=== PATIENT | male | born 1935 | race Caucasian/White ===

== ENCOUNTER 2021-08-14 05:52 | Inpatient (IN) | payer MEDICARE, BC, SELFPAY ==
[2021-08-14] VITALS (21 sets, daily range): BP systolic 126–141; BP diastolic 66–78; PULSE 78–95; RESP 14–27; TEMP 35.9–36.5; O2SAT 91–100; BMI 32.1
--- NOTE | ~2021-08-14 | CT_ITS ---
EXAMINATION: CT abdomen pelvis wo con DATE: 08/14/2021 17:14 INDICATION: Scrotal swelling TECHNIQUE: Computed tomography (CT) of the abdomen and pelvis was performed without intravenous contr ast. The dose-length product was 1372.39 mGy-cm. Automated exposure control and iterative reconstruct ion technique were employed. COMPARISON: None. FINDINGS: Bibasilar dependent airspace disease. Heart size is normal. No significant pleural or peric ardial effusion. Status post cholecystectomy. The liver, spleen, pancreas, adrenal glands are unremar kable. There are bilateral renal cysts. No hydronephrosis. Nonobstructive bowel gas pattern. Prostate gland is mildly enlarged. Bladder wall is mildly thickened with subtle perivesical fatty infiltratio n. There are is fluid in the inguinal canals bilaterally, consistent with hydroceles. There is a fat- containing umbilical hernia. Moderate osteoarthritis of the hips. Moderate lower thoracic and lumbar spondylosis. IMPRESSION: 1. Mild bladder wall thickening with subtle perivesical fatty infiltration, suspicious for cystitis. Correlate clinically. 2: Partially visualized bilateral hydroceles. 3: Bibasilar airspace disease, right greater than left. Considerations include atelectasis and pneum onia. Reviewed, dictated and finalized at location A. IMPRESSION: 1. Mild bladder wall thickening with subtle perivesical fatty infiltration, zack picious for cystitis. Correlate clinically. 2: Partially visualized bilateral hydroceles. 3: Bibasilar airspace disease, right greater than left. Considerations include atelectasis and pneumonia.
--- NOTE | ~2021-08-14 | XR_ITS ---
EXAMINATION: XR chest 1V portable INDICATION: Chest pain TECHNIQUE: Portable AP chest at 0409 hours COMPARISON: None available FINDINGS: There are patchy bilateral airspace opacities throughout all lung zones. No pleural effusio n or pneumothorax is identified. Cardiomegaly is noted. A cardiac monitoring device projects over the left lower cardiac border. IMPRESSION: 1. Patchy bilateral airspace opacities which could reflect atelectasis versus pneumonia versus pulmon elsy edema. 2. Cardiomegaly. Reviewed, dictated and finalized at location A. IMPRESSION: 1. Patchy bilateral airspace opacities which could reflect atelectasis versus p neumonia versus pulmonary edema. 2. Cardiomegaly.
--- NOTE | ~2021-08-14 | XR_ITS ---
EXAMINATION: XR chest 1V portable INDICATION: Hypoxia TECHNIQUE: Portable AP chest at 0527 hours COMPARISON: 08/14/2021 FINDINGS: Cardiomegaly is noted. Patchy bilateral opacities persist but have improved. No pleural eff usion or pneumothorax is identified. A cardiac monitoring device projects over the left lower cardiac border.. IMPRESSION: 1. Cardiomegaly. 2. Improved bilateral airspace opacities, consistent with atelectasis versus pneumonia. Reviewed, dictated and finalized at location A. IMPRESSION: 1. Cardiomegaly. 2. Improved bilateral airspace opacities, consistent with atelectasis versus pn eumonia.
--- NOTE | ~2021-08-14 | US_ITS ---
EXAMINATION: US scrotum doppler EXAM DATE: 08/14/2021 13:57 INDICATION: Scrotal swelling. TECHNIQUE: Multiple grayscale and Doppler images of the testicles and scrotum were obtained bilateral ly. There is no prior study for comparison. FINDINGS: There are large, severe bilateral hydroceles. The testicles along the wall of the scrotum appear sarahi gated in shape with the right measuring 7.2 x 2.1 x 2.5 cm, the left measuring 7.9 x 3.1 x 4.6 cm. Left testicular parenchyma has regions of heterogeneous echogenicity, some of which demonstrate shado wing consistent with calcification. This is nonspecific but does raise possibility of testicular mass including both benign and malignant histologies such as seminoma. IMPRESSION: 1. Left testicular regions heterogeneous parenchyma, could indicate testicular mass such as seminoma ; a CT abdomen pelvis, and consult would be appropriate. 2. Severe bilateral hydroceles. Reviewed, dictated and finalized at location B. IMPRESSION: 1. Left testicular regions heterogeneous parenchyma, could indicate testicular mass such as seminoma; a CT abdomen pelvis, and consult would be appropriat e. 2. Severe bilateral hydroceles.
--- NOTE | 2021-08-14 05:59 | ECG_ITS ---
Measurements Intervals [place] Rate: 81 P: [place]: 0 QRS: 245 QRSD: 157 T: 47 QT: 437 QTc: 510 Interpretive Statements ELECTRONIC VENTRICULAR PACEMAKER BASELINE ARTIFACT- I, II, III, AVR, AVL, AVF, V1-V6 NO FURTHER INTERPRETATION IS POSSIBLE ATYPICAL ECG Electronically Signed On 08-14-2021 6:59:25 CDT by Bo Baires D.O.
[2021-08-14 06:15] LABS: Basophils Absolute Auto 0.1 K/mm3 (0.0-0.1); Eosinophils Absolute Auto 0.4 K/mm3 (0-0.3); Eosinophils Percent Auto 2.6 % (0-4.4); Hematocrit 56.7 % (42.0-52.0); Hemoglobin 17.8 g/dL (14.0-18.0); Immature Granulocyte Absolute 0.08 K/mm3 (0.00-0.031); Immature Granulocyte Percent A 0.6 % (0-0.5); Lymphocytes Absolute Auto 1.77 K/mm3 (0.9-3.2); Mean Corpuscular HGB Conc 31.4 g/dl (32-36); Mean Corpuscular Hemoglobin 26.7 pg (26-34); Mean Platelet Volume 10.4 fl (7.4-10.4); Monocytes Absolute Auto 0.9 K/mm3 (0.1-0.6); Monocytes Percent Auto 6.6 % (2.6-8.5); Neutrophils Absolute Auto 10.4 K/mm3 (1.3-6.7); Neutrophils Percent Auto 76.2 % (45.5-73.1); Platelet Count Result 468 k/mm3 (150-375); Red Blood Count 6.67 M/mm3 (4.6-6.20); Red Cell Distribution Width 21.2 % (11.5-14.5); White Blood Count 13.7 K/mm3 (4.5-10.0)
--- NOTE | 2021-08-14 06:20 | PC.NURSE ---
spo2 on ra 92 O2 nc 3L increase spo2 95%
--- NOTE | 2021-08-14 06:22 | ED.CHESTPAIN ---
HPI - Chest Pain General Chief Complaint: Chest Pain Stated Complaint: chest pain Time Seen by Provider: 08/14/21 05:55 Source: patient, family, EMS and RN notes reviewed Mode of arrival: EMS Limitations: dementia History of Present Illness HPI narrative: This is an 86 year old male with history of hypertension, CHF, COPD, and dementia who presents from home for evaluation of chest pain. Patient has dementia so he is unable to give good history of pain. His states patient told her he had midsternal chest pain at 4 am. He is unsure if pain is better or worse after nitroglycerin. He denies associated nausea, vomiting, fever or shortness of breath. He reports mild cough. His reports patient has been taking 80 of Lasix and metolazone. She states his feet and legs seem slightly more swollen today. She denies pain having history of KS or stent. He has a micra pacemaker in place, and she states it was checked last week. EMS gave patient aspirin 324 mg and 1 spray nitroglycerin in route. Related Data Home Medications Medication Instructions Recorded Confirmed apixaban [Eliquis] 5 mg PO BID 08/14/21 08/14/21 furosemide [Lasix] 40 mg PO BID 08/14/21 08/14/21 terazosin 2 mg PO DAILY 08/14/21 08/14/21 Allergies Allergy/AdvReac Type Severity Reaction Status Date / Time chlorhexidine Allergy Severe GENERALIZED Verified 08/14/21 06:22 HIVES Review of Systems Review of Systems: ROS unobtainable: Yes unobtainable due to medical condition (dementia) [facility] Past Medical History Medical History (Updated 08/15/21 @ 04:59 by Lacey Elizabeth MD) Atrial fibrillation CHF (congestive heart failure) COPD (chronic obstructive pulmonary disease) denies that the patient has this Dementia Hearing loss No longer wears his hearing aides History of CVA (cerebrovascular accident) CT brain 2016 showing old strokes bilateral frontal lobes HTN (hypertension), benign SHO (obstructive sleep apnea) No longer on BiPAP Pacemaker PSVT (paroxysmal supraventricular tachycardia) Scrotal swelling Surgical History Surgical History (Updated 08/14/21 @ 09:59 by Kvng Alcantar MD) H/O prostatectomy TURP in 2004 History of knee replacement Bilateral knee replacement i 1996; Right re-do on 2007 Family History Family History (Updated 08/14/21 @ 12:11 by Kvng Alcantar MD) Mother Dementia Father Seizure Social History Social History (Updated 08/14/21 @ 12:12 by Kvng Alcantar MD) Social History: Patient smoked a pack a day for about 14 years and quit in 1973. Occasional alcohol use. No drug use. Lives at home with his . He is full code. Patient's daughter has the power of traffic law attorney. Smoking packs per day: 1 Smoking cigarettes per day: 20.0 Years smoked: 14 Smoking pack-years: 14.00 Smoking status: Former smoker Tobacco type: cigarettes Smoking end date: 07/19/74 Alcohol intake: former Drinks per week: 1 Substance use: never Spiritual care concerns: No Exam Const: General: no acute distress, alert and ill appearing chronically Eyes: EOM: EOMs intact bilaterally Resp: Effort & Inspection: normal respiratory effort and no retractions Auscultation: clear to auscultation bilaterally Cardio: Rate: regular rate Rhythm: regular rhythm Heart sounds: Murmur heart sound present GI: GI Palp: Yes Soft to palpation, No Tenderness to palpation present (GI) and No Guarding due to palpation present (GI) Auscultation: normal bowel sounds : Scrotum: scrotal swelling bilateral Back/Spine/Pelvis: Back: no CVA tenderness Skin: Other: bilateral venous stasis Neuro: General: moves all extremities and CN's II-XI intact bilaterally Extrem: General: edema bilateral Other: right foot with large mass Psych: Mental Status: mental status grossly normal Affect: normal affect Course Reevaluation(s) Reevaluation #1: I discussed with patient and that he w
[2021-08-14 06:28] LABS: INR 1.4; Prothrombin Time 17.3 Seconds (11.1-14.7)
[2021-08-14 06:29] LABS: Partial Thromboplastin Time 40.4 SECONDS (22.3-36.8)
[2021-08-14 06:34] LABS: Anion Gap 10 mmol/L (8-16); Blood Urea Nitrogen 35 mg/dL (9-20); Calcium 8.9 mg/dL (8.4-10.2); Carbon Dioxide 34 mmol/L (22-30); Chloride 92 mmol/L (98-107); Estimated CRCL calculation 43 ml/min; Estimated Glomerular Filt Rate 52; Glucose 143 mg/dL (65-110); Potassium 2.2 mmol/L (3.4-5.0); Sodium 136 mmol/L (137-145)
[2021-08-14 06:34] LABS: Alveolar/Arterial O2 Gradient 114.9 mmHg; Base Excess ABG 7.8 mEq/l (+/-2.0); Carboxyhemoglobin 1.3 % THb (0-2.0); Fractional Inspired Oxygen 32 %; Methemoglobin ABG 0.5 %THb (0-1.5); Oxygen Content ABG 23.6 %vol (16.0-22.0); Oxygen Saturation ABG 95.4 % (95.0-100.0); Oxyhemoglobin 92.6 % THb (90.0-100.0); PCO2 ABG 38.1 mmHg (35.0-45.0); PO2 ABG 68.7 mmHg (80.0-100.0); PO2 FiO2 Ratio Arterial Blood 2.15 %; Reduced Hemoglobin 5.6 %THb (0-5.0); Total Hemoglobin 18.2 g/dL (12.0-18.0)
[2021-08-14] MEDS: NITROGLYCERIN SL 0.4 MG TABLET SUBLINGUAL (06:34)
[2021-08-14 06:35] LABS: Device NASAL CANNULA; Modified Allen's Test Pass; Site Drawn RIGHT RADIAL; pH ABG 7.528 (7.350-7.450)
[2021-08-14 06:38] LABS: Troponin I < 0.012 ng/mL (0.000-0.034)
--- NOTE | 2021-08-14 06:47 | PC.NURSE ---
called [facility] transfer center and spoke with Ross. No beds available at [facility]. Waitlist only.
--- NOTE | 2021-08-14 06:51 | PC.NURSE ---
red area coccyx area with small healing area left buttock tender to touch
[2021-08-14 06:52] LABS: Alanine Aminotransferase 15 U/L (4-50); Albumin Level 4.1 g/dL (3.5-5.1); Alkaline Phosphatase 75 U/L (38-126); Aspartate Amino Transferase 33 U/L (17-59); Bilirubin,Total 2.1 mg/dL (0.2-1.3); Lipase 32 U/L (23-300); Magnesium 2.1 mg/dL (1.6-2.3)
[2021-08-14] MEDS: POTASSIUM CHLORIDE 20 MEQ TABLET 40 MEQ PO ×2 (07:00→17:37)
[2021-08-14 07:01] LABS: NT Pro B Type Natriuretic Pept 2720 pg/mL (5-100)
[2021-08-14] MEDS: MORPHINE SULFATE (*CRX) 2 MG/ML INJ IV PUSH (07:01)
[2021-08-14] MEDS: ONDANSETRON INJ 4 MG/2 ML VIAL IV PUSH (07:04)
--- NOTE | 2021-08-14 07:53 | PC.NURSE ---
Patient complaining of pain in IV site for potassium infusion. Rate reduced for patient comfort.
--- NOTE | 2021-08-14 08:09 | PM.CNCAR ---
Assessment and Plan Assessment and plan (1) Pacemaker: Code(s): Z95.0 - Presence of cardiac pacemaker Status: Inactive Assessment and Plan: Currently in paced ventricular rhythm. Normal interrogation last week at [facility] per patient's . His regular tipple operator is Dr. Remy. (2) CHF (congestive heart failure): Code(s): I50.9 - Heart failure, unspecified Status: Inactive Assessment and Plan: Probably acute on chronic diastolic heart failure. Start Lasix 40 mg IV q12 hours. Replace Potassium. Check Mag. He has significant scrotal swelling and needs urologic evaluation in case not related to CHF. Obtain echo. Obtain medical records from his tipple operator office, Dr. Remy at [facility] regarding cardiac history. (3) SOB (shortness of breath) on exertion: Code(s): R06.02 - Shortness of breath Status: Acute Assessment and Plan: Could be due to CHF or pneumonia. He is receiving antibiotics also. (4) Atrial fibrillation: Code(s): I48.91 - Unspecified atrial fibrillation Status: Acute Assessment and Plan: On Eliquis. Rate is paced. (5) Chest pain: Code(s): R07.9 - Chest pain, unspecified Status: Acute Assessment and Plan: Resolved in ED. Follow serial troponin. History of Present Illness History of Present Illness Consult date/time: 08/14/21 08:09 Reason for consult: CHF. 86 yr old man presents to ER for chest pain. He has a history of subcutaneous pacemaker placed a few years ago and his regular tipple operator is Dr. Remy at [facility] and was interrogated last week and everything is working OK per patient's , atrial fibrillation, CHF, dementia. He is alert and oriented x 2 (not year and could not recall [place] president). According to his his memory waxes and wanes. Patient reports having chest pain this morning around 4 am and in ER pain has resolved. He did get aspirin and NTG SL. Reports neck pain and his states he has arthritis all over. He has been on Lasix regularly and Metolazone was added for 2 weeks which last dose was 2 days ago with resolution of swelling of legs, but with persistently swollen scrotum. He was evaluated by urology previously for it. Admits to sob, but no longer having chest pains. He walks in his house with a walker minimum distance due to balance issues and has fallen in the past. Denies orthopnea, PND, dizziness, palpitations. CXR shows patchy airspace opacities bilaterally, could be atelectasis, pneumonia or pulm edema. EKG shows ventricular pacemaker. WBV 13.7, Plt 468. ABG 7.52/38/68 on 3 L NC. Potassium, 2.2, Sodium 136. Cr 1.3/GFR 43, NTproBNP 2,720. Troponin 0 x 1 set. Reason For Visit: Hypokalemia, Pneumonia vs CHF, chest pain Review of Systems Review of Systems: All systems reviewed & are unremarkable except as noted in HPI and below Constitutional: Constitutional: Reports as per HPI and Denies fever(s) Cardiovascular: Cardiovascular: Reports as per HPI, Reports chest pain, Denies irregular heart rhythm, Reports leg edema, Denies lightheadedness and Reports dyspnea Respiratory: Respiratory: Reports as per HPI and Reports dyspnea Gastrointestinal: Gastrointestinal: Reports as per HPI and Denies abdominal pain Genitourinary: Genitourinary: Reports as per HPI, Denies dysuria and Reports scrotal swelling Musculoskeletal: Musculoskeletal: Reports as per HPI, Reports arthralgias and Reports neck pain Neurologic: Reports as per HPI, Denies dizziness and Denies syncope PMFSH Past Medical History Medical History (Updated 08/14/21 @ 08:23 by Bo Baires DO) CHF (congestive heart failure) COPD (chronic obstructive pulmonary disease) Dementia Pacemaker Surgical History Surgical History (Updated 08/14/21 @ 06:23 by Lacey Elizabeth MD) H/O prostatectomy Social History Social History (Updated 08/14/21 @ 06:23 by Lacey Elizabeth MD)
--- NOTE | 2021-08-14 08:55 | PC.NURSE ---
Pts daughter to ER triage wanting to speak with in regards to pts care. Pts daughter states she is POA. Informed charged nurse of this and was to told to inform daughter that night did not sign over care of pt to day ERP so therefore day is not sure of pts history and would not be able to speak with her. Informed Pts daughter that once pt is admitted she can call then and speak with Dr that is taking care of pt.
[2021-08-14 09:32] LABS: Magnesium 2.1 mg/dL (1.6-2.3)
[2021-08-14 09:42] LABS: Troponin I < 0.012 ng/mL (0.000-0.034)
--- NOTE | 2021-08-14 09:49 | PM.IMHP ---
H&P: HPI History of Present Illness Date/Time: 08/14/21 09:49 Chief Complaint: Chest pain Narrative: 86-year-old male with a history of HTN, CHF and dementia who was brought in by EMS for chest pain. Patient is alert but confused and unable to provide history. His is in the room and she provides majority of history. Chart was also reviewed. Patient is on Lasix 40 mg b.i.d. chronically for his CHF. He occasionally gets courses of metolazone for increasing edema. He was recently on metolazone for about 17 days that ended on 08/12/2021. They did hold metolazone for 2 of those days when they were at a wedding. has noted that the leg edema is improved but has noted that the scrotal edema has worsened over the past week. It should be mentioned that the patient has what sounds like bilateral hydroceles chronically. He has had the enlarged scrotum from several years and actually had a drainage x1 by urologist. Patient has been sleeping more. He does have ?poor circulation? in his feet which his airborne missions systems felt contributing to his pedal edema. He has been using his walker more. He gets the majority was care at [facility]. This morning around 4:00 a.m., patient awoke with complaints of chest pain that he described as 'tight'. There is no nausea or vomiting. He had a mild cough but no shortness of breath, fever, chills, diarrhea. He has had his COVID vaccine x2. He is up-to-date on his influenza vaccine. He does have urinary frequency and has also been up at night voiding. He has sleep apnea but no longer wears the BiPAP at night because of the frequent nocturia. He has not worn BiPAP for the past 6 months. Because of the chest pain, EMS was called. Aspirin was given. One spray of nitroglycerin was given in route. He was brought to the emergency room for evaluation. In the ED, patient was hemodynamically stable. EKG showed paced rhythm. Chest x-ray showed patchy bilateral airspace opacities atelectasis versus pneumonia versus edema. He also has cardiomegaly. [place] [id number]. ABG shows 7.53/38/69 on 3 L. potassium is 2.2 with BUN at 35 and creatinine 1.3. Unclear on baseline. LFTs are normal except for total bilirubin of 2.1 that was all indirect. Troponin is negative x2. BNP was 2700. Patient was given oral and IV potassium. Was started on IV antibiotics. Blood cultures were collected. His does state the patient has been choking on food and water at times. He was admitted for further care. does state patient lays around mostly and complains of buttock pain. He has had recent sacral pressure sore but she is not sure if this has healed. Review of Systems Review of Systems: ROS unobtainable: Yes unobtainable due to mental status PMFSH Past Medical History Medical History Atrial fibrillation CHF (congestive heart failure) COPD (chronic obstructive pulmonary disease) denies that the patient has this Dementia Hearing loss No longer wears his hearing aides History of CVA (cerebrovascular accident) CT brain 2015 showing old strokes bilateral frontal lobes HTN (hypertension), benign SHO (obstructive sleep apnea) No longer on BiPAP Pacemaker PSVT (paroxysmal supraventricular tachycardia) Scrotal swelling Surgical History Surgical History H/O prostatectomy TURP in 2004 History of knee replacement Bilateral knee replacement i 1996; Right re-do on 2007 Family History Family History Mother Dementia Father Seizure Social History Social History Social History: Patient smoked a pack a day for about 14 years and quit in 1973. Occasional alcohol use. No drug use. Lives at home with his . He is full code. Patient's daughter has the power of contract attorney. Smoking p
[2021-08-14 12:46] LABS: Troponin I < 0.012 ng/mL (0.000-0.034)
[2021-08-14 14:47] LABS: Potassium 3.3 mmol/L (3.4-5.0)
--- NOTE | 2021-08-14 15:48 | PC.NURSE ---
This patient, Christelle Sanders, was admitted to IMU Room 202-01. Patient/family oriented to hospital policies and general routines including ID bracelet, bed and alarms, visiting hours, pain management, procedures, bathroom and other care routines, personal items, smoking policy, room service/diet, and visiting hours. Information on how to activate the Rapid Response Team has been discussed. Patient/Family are encouraged to report perceived risks to care and to ask questions if they do not understand what they are told or what they should do.
[2021-08-14] MEDS: FUROSEMIDE INJ 40 MG/4 ML VIAL IV PUSH (17:36)
[2021-08-14] MEDS: POTASSIUM CHLORIDE 20 MEQ TABLET.ER 40 MEQ PO (20:45)
[2021-08-14 21:07] LABS: Add Urine Microscopic? YES; Appearance Urine Clear (Clear); Bacteria Urine 1+ /hpf; Bilirubin Urine Negative (Negative); Blood Urine Negative (Negative); Color Urine Yellow (Yellow); Glucose Urine UA Negative (Negative); Hyaline Casts Urine 15-19 /lpf; Ketones Urine Negative (Negative); Leukocyte Esterase Ur 3+ LEU/UL (Negative); Mucus Urine Rare /lpf; Nitrate Urine Positive (Negative); Protein Urine Negative (Negative); RBC Urine 0-2 /hpf (0-2); Specific Grav Ur 1.009 (1.001-1.035); Squamous Epithelial Cell Urine Rare /hpf (Few); Urobilinogen Urine Negative mg/dL (<2.0); WBC Urine 51-75 /hpf
[2021-08-14] MEDS: APIXABAN 5 MG TABLET PO (22:13)
[2021-08-14] MEDS: TOLNAFTATE 1% POWDER 45 GM BTL 1 APPLIC TOPICAL (22:15)
[2021-08-14 23:32] LABS: Potassium 3.8 mmol/L (3.4-5.0)
[2021-08-15] VITALS (14 sets, daily range): BP systolic 113–130; BP diastolic 58–68; PULSE 80–95; RESP 20–84; TEMP 36.6–36.8; O2SAT 20–99
[2021-08-15 05:16] LABS: Hematocrit 54.9 % (42.0-52.0); Mean Corpuscular Hemoglobin 26.9 pg (26-34); Mean Corpuscular Volume 86.9 fl (80-100); Mean Platelet Volume 10.3 fl (7.4-10.4); Platelet Count Result 486 k/mm3 (150-375); Red Blood Count 6.32 M/mm3 (4.6-6.20); Red Cell Distribution Width 21.2 % (11.5-14.5); White Blood Count 15.4 K/mm3 (4.5-10.0)
[2021-08-15 05:35] LABS: Alanine Aminotransferase 15 U/L (4-50); Albumin Level 3.7 g/dL (3.5-5.1); Alkaline Phosphatase 77 U/L (38-126); Anion Gap 10 mmol/L (8-16); Aspartate Amino Transferase 37 U/L (17-59); Bilirubin,Total 3.2 mg/dL (0.2-1.3); Blood Urea Nitrogen 35 mg/dL (9-20); Calcium 8.7 mg/dL (8.4-10.2); Carbon Dioxide 29 mmol/L (22-30); Chloride 95 mmol/L (98-107); Cholesterol 115 mg/dL (0-200); Estimated CRCL calculation 40 ml/min; Estimated Glomerular Filt Rate 48; Glucose 136 mg/dL (65-110); HDL Direct 44 mg/dL; Magnesium 2.5 mg/dL (1.6-2.3); Phosphorus 3.5 mg/dL (2.5-4.5); Potassium 3.8 mmol/L (3.4-5.0); Sodium 134 mmol/L (137-145); Triglycerides 87 mg/dL (<150)
[2021-08-15 05:46] LABS: LDL Cholesterol Direct 55 mg/dL
--- NOTE | 2021-08-15 07:03 | PM.PNCARD ---
Progress Note: A&P Assessment and Plan (1) Pacemaker: Code(s): Z95.0 - Presence of cardiac pacemaker Status: Inactive Assessment and Plan: Currently in paced ventricular rhythm with a [employer] apparently a subcutaneous pacemaker. Normal interrogation last week at [facility] per patient's . His regular windows deployment technician is Dr. Remy. (2) CHF (congestive heart failure): Code(s): I50.9 - Heart failure, unspecified Status: Acute Assessment and Plan: Probably was acute on chronic diastolic heart failure. Appears euvolemic. On Lasix 40 mg IV q12 hours. Will change Lasix 40 mg PO BID. He has significant scrotal swelling and needs urologic evaluation in case not related to CHF. Obtain echo today. (3) SOB (shortness of breath) on exertion: Code(s): R06.02 - Shortness of breath Status: Acute Assessment and Plan: Probably due to pneumonia more than CHF. He is receiving antibiotics. (4) Atrial fibrillation: Code(s): I48.91 - Unspecified atrial fibrillation Status: Acute Assessment and Plan: On Eliquis. Rate is paced. (5) Chest pain: Code(s): R07.9 - Chest pain, unspecified Status: Acute Assessment and Plan: Resolved in ED. Troponin negative. Subjective Date/time seen: 08/15/21 07:03 Breathing is better today. No chest pains. Exam Const: General: cooperative, healthy appearing and comfortable Resp: Auscultation: clear to auscultation bilaterally, no crackles, no rales, no rhonchi and no wheezes Cardio: Jugular venous distension: no JVD Rate: regular rate Rhythm: regular rhythm Heart sounds: no murmurs Peripheral pulses: dorsalis pedis present GI: GI Palp: No abdominal tenderness and Yes Soft to palpation : Scrotum: scrotal swelling Neuro: General: oriented to person, oriented to place and No oriented to time Extrem: Right upper extremity: edema Left upper extremity: edema Other: Mild ankle edema bilaterally Objective Data Vital Signs Vital Signs: Vital Signs - 24 hr 08/14/21 07:50 08/14/21 09:00 08/14/21 10:00 Temperature 96.9 F L Pulse Rate 80 88 84 Respiratory Rate 14 18 Blood Pressure 137/70 133/68 Pulse Oximetry 93 95 08/14/21 12:00 08/14/21 14:00 08/14/21 14:31 Temperature 97.3 F L Pulse Rate 88 83 Respiratory Rate 24 H Blood Pressure 134/78 Pulse Oximetry 93 93 08/14/21 16:00 08/14/21 18:00 08/14/21 19:22 Temperature 96.8 F L 96.7 F L Pulse Rate 82 92 78 Respiratory Rate 20 18 Blood Pressure 126/70 141/66 H Pulse Oximetry 94 100 08/14/21 20:00 08/14/21 22:00 08/15/21 00:00 Temperature 97.8 F Pulse Rate 85 80 84 Respiratory Rate 84 H Blood Pressure 126/68 Pulse Oximetry 20 L 08/15/21 02:00 08/15/21 04:00 08/15/21 06:00 Temperature 98.1 F Pulse Rate 81 81 80 Respiratory Rate 20 Blood Pressure 130/66 Pulse Oximetry 94 Intake/Output Intake/Output: Intake & Output 08/12/21 08/13/21 08/14/21 08/15/21 23:59 23:59 23:59 23:59 Intake Total 1010 Output Total 300 Balance 710 Meds/Results Medications: Active Medications Generic Name Dose Route Start Last Admin Trade Name Freq PRN Reason Stop Dose Admin Apixaban 5 mg 08/14/21 21:00 08/14/21 22:13 Apixaban 5 Mg Tablet PO 5 mg Q12HR AALIYAH Administration Aspirin 81 mg 08/15/21 08:00 Aspirin 81 Mg Chewable Tablet PO DAILY@0800 AALIYAH Furosemide 40 mg 08/14/21 17:00 08/14/21 17:36 Furosemide Inj 40 Mg/4 Ml Vial IV PUSH 40 mg BID AALIYAH Administration Acetaminophen 1,000 mg in 100 mls @ 400 mls/hr 08/14/21 07:24 Ofirmev 1,000 Mg Ivpb IVPB 08/15/21 07:23 Q6H PRN Mild Pain (1-3) or Fever Miconazole Nitrate 1 applic 08/14/21 09:00 08/14/21 22:14 Miconazole 2% Antifungal Ointment 56 Gm TOPICAL 1 applic Q12HR AALIYAH Administration Nitroglycerin 0.4 mg 08/14/21 07:24 Nitroglycerin Sl 0.4 Mg Tablet SUBLIN
[2021-08-15] MEDS: FUROSEMIDE 40 MG TABLET PO ×2 (08:58→17:09)
[2021-08-15] MEDS: ASPIRIN 81 MG CHEWABLE TABLET PO (08:58)
[2021-08-15] MEDS: APIXABAN 5 MG TABLET PO ×2 (08:58→21:17)
[2021-08-15] MEDS: TOLNAFTATE 1% POWDER 45 GM BTL 1 APPLIC TOPICAL ×2 (08:59→21:17)
[2021-08-15] MEDS: TERAZOSIN HCL 1 MG CAPSULE 2 MG PO (09:00)
--- NOTE | 2021-08-15 11:27 | WPDURCON ---
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 Ideally, he would undergo bilateral hydrocelectomy and left orchiectomy. Although not traditional, I would recommend doing this through a scrotal incision so that both hydroceles could be addressed (as opposed to an inguinal incision which is typically used in the presence of potential testicular malignancy). I have reviewed his medical history with anesthesiologist in the feel at some point the patient would be a surgical candidate. He would like to see results of the cardiac echo pending later today. Additionally, patient 1/ to stop anticoagulation briefly. Urology Consult Note HPI Date Seen: 08/15/21 Requesting Physician: Eitan Alcantar MD Primary Care Provider: Chandan RodríguezMD Consult Narrative Narrative: Christelle Sanders is a 86 year old male who has been seen in our practice for epididymitis and But not since 2017. He does mid now with multiple comorbidities, with acute respiratory issues. During evaluation he was noted to have large bilateral scrotal swelling. Scrotal ultrasonography reveals large bilateral hydroceles with abnormal echotexture to the left testicle suggestive of possible underlying malignancy. He did have scrotal ultrasounds in 2016 and 2017 with normal appearing testes bilaterally. CT scan abdomen and pelvis on this admission shows nothing to suggest metastatic testicular cancer. Approximately 2 years ago patient was evaluated by urologist [facility] for the hydroceles. He underwent percutaneous aspiration in the office. Slowly, over time as expected, the hydroceles have recurred. Review of Systems Cardiovascular: Cardiovascular: Denies chest pain, Denies lightheadedness, Denies palpitations and Denies dyspnea Respiratory: Respiratory: Reports as per HPI Gastrointestinal: Gastrointestinal: Denies diarrhea, Denies nausea and Denies vomiting Genitourinary: Genitourinary: Denies hematuria, Denies dysuria and Reports scrotal swelling Endocrine: Endocrine: Denies palpitations PMFSH Past Medical History Medical History Atrial fibrillation CHF (congestive heart failure) COPD (chronic obstructive pulmonary disease) denies that the patient has this Dementia Hearing loss No longer wears his hearing aides History of CVA (cerebrovascular accident) CT brain 2016 showing old strokes bilateral frontal lobes HTN (hypertension), benign SHO (obstructive sleep apnea) No longer on BiPAP Pacemaker PSVT (paroxysmal supraventricular tachycardia) Scrotal swelling Surgical History Surgical History H/O prostatectomy TURP in 2004 History of knee replacement Bilateral knee replacement i 1996; Right re-do on 2007 Family History Family History Mother Dementia Father Seizure Social History Social History Social History: Patient smoked a pack a day for about 14 years and quit in 1973. Occasional alcohol use. No drug use. Lives at home with his . He is full code. Patient's daughter has the power of assistant prosecuting attorney. Smoking packs per day: 1 Smoking cigarettes per day: 20.0 Years smoked: 14 Smoking pack-years: 14.00 Smoking status: Former smoker Tobacco type: cigarettes Smoking end date: 07/19/74 Alcohol intake: former Drinks per week: 1 Substance use: never Spiritual care concerns: No Meds Home
[2021-08-15] MEDS: POTASSIUM CHLORIDE 20 MEQ TABLET.ER 40 MEQ PO (11:30)
--- NOTE | 2021-08-15 13:12 | PM.IMPN ---
Progress Note: A&P Assessment and Plan (1) Acute respiratory failure with hypoxia: Code(s): J96.01 - Acute respiratory failure with hypoxia Status: Acute Assessment and Plan: ABG showing 7.53/30/69 on 3 L. appears to be more of a metabolic alkalosis but consider respiratory component related to tachypnea given his hypoxia. Unclear what his baseline pCO2 is. Chest x-ray is consistent with CHF versus pneumonia. Speech did see the patient and recommended Regular with mildly thickened liquid. CHF exacerbation seems less likely given the fact he did just complete a course of metolazone with improvement in his leg edema. COVID possible since he has been to a wedding recently. Was treated with IV Lasix but changed to oral now. COVID testing pending. Started on IV antibiotics but will change to cover for aspiration. Wean oxygen as tolerated. (2) Chest pain: Code(s): R07.9 - Chest pain, unspecified Status: Acute Assessment and Plan: EKG showing paced rhythm. Troponin negative x3 now. No history of coronary disease. Lipid panel noted with LDL 55 and HDL 44. Continue aspirin. Echo pending. Appreciate cardiology input. (3) Hypokalemia: Code(s): E87.6 - Hypokalemia Status: Acute Assessment and Plan: Potassium 2.2 on admission. Most likely related to the fact he has been on metolazone recently. Potassium replaced and repeat potassium this morning in 3.8. Magnesium levels remain normal and above 2.0. (4) Pneumonia: Code(s): J18.9 - Pneumonia, unspecified organism Status: Acute Assessment and Plan: CXR on admission showing patchy bilateral airspace opacities. Treated with Rocephin azithromycin as well as IV Lasix. Repeat chest x-ray today does show improvement. BCx NGTD. CT of the abdomen showing bibasilar airspace disease, right greater than left atelectasis vs pneumonia. Bedside swallow evaluation as mentioned above. Will thicken liquids. Aspiration precautions. Out of bed for all meals. Change to Unasyn. COVID results pending. (5) CHF (congestive heart failure): Code(s): I50.9 - Heart failure, unspecified Status: Acute Assessment and Plan: Patient has a history of CHF. Unclear of this is systolic or diastolic. He does have cardiomegaly noted on the chest x-ray. BNP was 2720. IV Lasix started on admission. I/Os not accurate. Repeat CXR showing improvement. Changed to oral Lasix today. Wean o2 as tolerated. Echo pending (6) Renal insufficiency: Code(s): N28.9 - Disorder of kidney and ureter, unspecified Status: Acute Assessment and Plan: BUN 35, creatinine 1.3 with a creatinine clearance of 43 on admission. Cr about the same at 1.4. This may be his baseline creatinine function. Will continue to monitor and trend. (7) Bilateral hydrocele: Code(s): N43.3 - Hydrocele, unspecified Status: Acute Assessment and Plan: Patient with marked scrotal swelling. This is longstanding related to large hydroceles. US showing the left testicular with regions of heterogeneous parenchyma which could indicate testicular mass such as seminoma and severe bilateral hydroceles. CT A/P showing mild bladder wall thickening with subtle perivesical fatty infiltration, suspicious for cystitis. UA collected and noted; UCx pending. This will make it difficult for the patient to walk. Urologist consulted and appreciate their input. (8) Mass of left testicle: Code(s): N50.89 - Other specified disorders of the male genital organs Status: Acute Assessment and Plan: Tumor markers collected. Urology note reviewed. Appreciate their input. (9) Atrial fibrillation: Code(s): I48.91 - Unspecified atrial fibrillation Status: Acute Assessment and Plan: Patient has chronic atrial fibrillation and has paced rhythm. He is not on any rate controlling agents. He is on Eliquis which was resumed here
[2021-08-15] MEDS: AMPICILLIN SULB 3 GM/NS 100 ML 3 GM/100 ML VIAL IVPB ×2 (17:08→23:14)
[2021-08-15] MEDS: POTASSIUM CHLORIDE 20 MEQ TABLET.ER PO (17:08)
[2021-08-15 17:33] LABS: SARS-CoV-2 RNA PCR Negative
[2021-08-16] VITALS (7 sets, daily range): BP systolic 116–136; BP diastolic 58–73; PULSE 79–89; RESP 20–26; TEMP 36.4–37.1; O2SAT 90–93
--- NOTE | 2021-08-16 | ECHO_ITS ---
Patient Info Name: Christelle Sanders Age: 86 years : 1935 Gender: Male Ht: 68 in Wt: 233 lbs BSA: 2.29 m2 HR: 80 bpm BP: 116 / 58 mmHg Exam Date: 08/16/2021 10:41 AM Exam Location: [facility] Pulmonary Patient Status: Inpatient Admit Date: 08/15/2021 Staff Ordering Physician: Bo Baires DO Chain Builder: Stefan Lizarraga RDCS, RT Attending Provider: Kvng Alcantar MD Referring Physician: Dequan REYNOLDS; Exam Type: CA echo doppler color flow Study Info Indications R07.9 - Chest pain, unspecified Complete two-dimensional, color flow and Doppler transthoracic echocardiogram is performed. Strain analysis performed. Summary 1. Complete two-dimensional, color flow and Doppler transthoracic echocardiogram is performed. 2. Left ventricular chamber dimension is normal. 3. Left ventricular systolic function is normal, estimated at 55-60%. 4. The left ventricular diastolic function is normal. 5. E/e' 9 is minimally elevated. 6. Global longitudinal strain is abnormal at -11.3%. 7. Right ventricular systolic function is mildly reduced and with abnormal TAPSE 1.3 cm.. 8. Right ventricular chamber dimension is mildly enlarged. 9. Right atrial chamber dimension is severely enlarged. 10. There is moderate aortic valve sclerosis. 11. The mitral valve has mildly calcified annulus. 12. There is moderate tricuspid valve regurgitation. 13. Mild pulmonary hypertension, estimated pulmonary arterial systolic pressure is 46 mmHg. 14. Dilated inferior vena cava with <50% collapse upon inspiration consistent with significantly elevated right atrial pressure, 15 mmHg. Left Ventricle E/e' 9 is minimally elevated. Global longitudinal strain is abnormal at -11.3%. Left ventricular chamber dimension is normal. Left ventricular systolic function is normal, estimated at 55-60%. The left ventricular diastolic function is normal. Right Ventricle Right ventricular systolic function is mildly reduced and with abnormal TAPSE 1.3 cm.. Right ventricular chamber dimension is mildly enlarged. Left Atria Left atrial chamber dimension is normal. Right Atria Right atrial chamber dimension is severely enlarged. Aortic Valve The aortic valve is trileaflet. There is moderate aortic valve sclerosis. There is no aortic valve stenosis. There is no aortic valve regurgitation. Pulmonic Valve There is no pulmonic regurgitation. Mitral Valve The mitral valve has mildly calcified annulus. There is no mitral valve stenosis. There is no mitral valve regurgitation. Tricuspid Valve There is moderate tricuspid valve regurgitation. Mild pulmonary hypertension, estimated pulmonary arterial systolic pressure is 46 mmHg. Pericardium/Pleural There is no pericardial effusion. Inferior Vena Cava Dilated inferior vena cava with <50% collapse upon inspiration consistent with significantly elevated right atrial pressure, 15 mmHg. Aorta The aortic root size at the sinus of Valsalva is normal. Left Ventricular Outflow Tract Name Value Normal LVOT 2D LVOT Diameter 2.2 cm LVOT Doppler LVOT Peak Gradient 3 mmHg
[2021-08-16 05:16] LABS: Hematocrit 56.6 % (42.0-52.0); Hemoglobin 17.3 g/dL (14.0-18.0); Mean Corpuscular HGB Conc 30.6 g/dl (32-36); Mean Corpuscular Hemoglobin 26.5 pg (26-34); Mean Corpuscular Volume 86.7 fl (80-100); Mean Platelet Volume 10.4 fl (7.4-10.4); Platelet Count Result 519 k/mm3 (150-375); Red Blood Count 6.53 M/mm3 (4.6-6.20); Red Cell Distribution Width 21.1 % (11.5-14.5); White Blood Count 16.8 K/mm3 (4.5-10.0)
[2021-08-16 05:40] LABS: Alanine Aminotransferase 16 U/L (4-50); Alkaline Phosphatase 85 U/L (38-126); Anion Gap 11 mmol/L (8-16); Aspartate Amino Transferase 34 U/L (17-59); Bilirubin,Total 2.5 mg/dL (0.2-1.3); Blood Urea Nitrogen 35 mg/dL (9-20); Calcium 8.9 mg/dL (8.4-10.2); Carbon Dioxide 28 mmol/L (22-30); Chloride 95 mmol/L (98-107); Estimated CRCL calculation 43 ml/min; Estimated Glomerular Filt Rate 52; Glucose 131 mg/dL (65-110); Lactate Dehydrogenase 454 U/L (313-618); Potassium 3.8 mmol/L (3.4-5.0); Sodium 134 mmol/L (137-145)
[2021-08-16] MEDS: AMPICILLIN SULB 3 GM/NS 100 ML 3 GM/100 ML VIAL IVPB (06:17)
--- NOTE | 2021-08-16 07:17 | WPDUROPN2 ---
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 Ideally, he would undergo bilateral hydrocelectomy and left orchiectomy. Although not traditional, I would recommend doing this through a scrotal incision so that both hydroceles could be addressed (as opposed to an inguinal incision which is typically used in the presence of potential testicular malignancy). I have reviewed his medical history with anesthesiologist in the feel at some point the patient would be a surgical candidate. He would like to see results of the cardiac echo pending later today. Additionally, patient 1/2 to stop anticoagulation briefly. 08/16/2021 Reviewed outside records for [facility] - no useful information there. But, clearly has large bilat. hydroceles and left testicular mass. Only definitive intervention would be surgical to correct the hydroceles and excise left testicle. Reviewed with anethesiologist - feel surgery could be performed here when pt. medically optimized and clearance to stop anticoagulants (+/- Lovenox bridge). Subjective Subjective Date/Time Seen: 08/16/21 07:17 Unchanged bilat. hydrocele. Review of Systems Cardiovascular: Cardiovascular: Denies chest pain, Denies lightheadedness, Denies palpitations and Denies dyspnea Respiratory: Respiratory: Denies dyspnea Gastrointestinal: Gastrointestinal: Denies diarrhea, Denies nausea and Denies vomiting Genitourinary: Genitourinary: Denies hematuria and Denies dysuria Endocrine: Endocrine: Denies palpitations Exam Const: General: no acute distress Resp: Effort & Inspection: normal respiratory effort GI: Inspection: non-distended Auscultation: normal bowel sounds : Scrotum: Hydrocele present (large bilat.) Objective Data Vital Signs Vital Signs: Vital Signs - 24 hr 08/15/21 08:00 08/15/21 10:00 08/15/21 11:50 Temperature 98.2 F 97.9 F Pulse Rate 81 80 82 Respiratory Rate 24 H 28 H Blood Pressure 115/59 L 125/60 Pulse Oximetry 93 97 08/15/21 12:00 08/15/21 14:00 08/15/21 16:00 Temperature 97.9 F Pulse Rate 80 82 80 Respiratory Rate 32 H Blood Pressure 113/63 Pulse Oximetry 96 08/15/21 18:00 08/15/21 19:57 08/15/21 20:00 Temperature 98.3 F Pulse Rate 82 81 84 Respiratory Rate 28 H Blood Pressure 124/58 L Pulse Oximetry 99 08/15/21 22:00 08/16/21 00:00 08/16/21 02:00 Temperature 97.6 F Pulse Rate 81 79 89 Respiratory Rate 20 Blood Pressure 119/59 L Pulse Oximetry 90 08/16/21 04:00 08/16/21 06:00 Temperature 97.8 F Pulse Rate 79 84 Respiratory Rate 20 Blood Pressure 116/58 L Pulse Oximetry 91 Intake/Output Intake/Output: Intake & Output 08/13/21 08/14/21 08/15/21 08/16/21 23:59 23:59 23:59 23:59 Intake Total 1010 1570 600 Output Total 300 250 Balance 710 1320 600 Meds/Results Medications: Active Medications Generic Name Dose Route Start Last Admin Trade Name Freq PRN Reason Stop Dose Admin Apixaban 5 mg 08/14/21 21:00 08/15/21 21:17 Apixaban 5 Mg Tablet PO 5 mg Q12HR AALIYAH Administration Aspirin 81 mg 08/15/21 08:00 08/15/21 08:58 Aspirin 81 Mg Chewable Tablet PO 81 mg DAILY@0800 AALIYAH Administration Furosemide 40 mg 08/15/21 09:00 08/15/21 17:09 Furosemide 40 Mg Tablet PO 40 mg BID AALIYAH Administration Ampicillin Sodium/Sulbactam Sodium 3 gm in 100 mls @ 200 mls/hr 08/15/21 23:00 08/16/21 06:53 Unasyn 3 Gm/Ns 100 Ml IVPB Infused Q6HR AALIYAH Infusion Miconazole Nitrate 1 applic 08/14/21 09:00 08/15/21 21:17 Miconazole 2% Antifungal
--- NOTE | 2021-08-16 08:03 | PM.PNCARD ---
Progress Note: A&P Assessment and Plan (1) Pacemaker: Code(s): Z95.0 - Presence of cardiac pacemaker Status: Inactive Assessment and Plan: Currently in paced ventricular rhythm with a [employer] apparently a subcutaneous pacemaker. Normal interrogation last week at [facility] per patient's . His regular line helper is Dr. Remy. (2) CHF (congestive heart failure): Code(s): I50.9 - Heart failure, unspecified Status: Acute Assessment and Plan: Probably was acute on chronic diastolic heart failure. Appears euvolemic. On Lasix 40 mg PO BID. He has significant scrotal swelling and mass. Obtain echo today. (3) SOB (shortness of breath) on exertion: Code(s): R06.02 - Shortness of breath Status: Acute Assessment and Plan: Probably due to pneumonia more than CHF. He has UTI also. He is receiving antibiotics. (4) Atrial fibrillation: Code(s): I48.91 - Unspecified atrial fibrillation Status: Acute Assessment and Plan: On Eliquis. Rate is paced. (5) Chest pain: Code(s): R07.9 - Chest pain, unspecified Status: Acute Assessment and Plan: Resolved in ED. Troponin negative. Subjective Date/time seen: 08/16/21 08:03 Denies chest pain. States breathing is OK. Exam Const: General: cooperative, healthy appearing and comfortable Resp: Auscultation: clear to auscultation bilaterally, no crackles, no rales, no rhonchi and no wheezes Cardio: Jugular venous distension: no JVD Rate: regular rate Rhythm: regular rhythm Heart sounds: no murmurs Peripheral pulses: dorsalis pedis present GI: GI Palp: No abdominal tenderness and Yes Soft to palpation : Scrotum: scrotal swelling Neuro: General: oriented to person, oriented to place and No oriented to time Extrem: Right upper extremity: edema Left upper extremity: edema Other: Mild ankle edema bilaterally Objective Data Vital Signs Vital Signs: Vital Signs - 24 hr 08/15/21 10:00 08/15/21 11:50 08/15/21 12:00 Temperature 97.9 F Pulse Rate 80 82 80 Respiratory Rate 28 H Blood Pressure 125/60 Pulse Oximetry 97 08/15/21 14:00 08/15/21 16:00 08/15/21 18:00 Temperature 97.9 F Pulse Rate 82 80 82 Respiratory Rate 32 H Blood Pressure 113/63 Pulse Oximetry 96 08/15/21 19:57 08/15/21 20:00 08/15/21 22:00 Temperature 98.3 F Pulse Rate 81 84 81 Respiratory Rate 28 H Blood Pressure 124/58 L Pulse Oximetry 99 08/16/21 00:00 08/16/21 02:00 08/16/21 04:00 Temperature 97.6 F 97.8 F Pulse Rate 79 89 79 Respiratory Rate 20 20 Blood Pressure 119/59 L 116/58 L Pulse Oximetry 90 91 08/16/21 06:00 Temperature Pulse Rate 84 Respiratory Rate Blood Pressure Pulse Oximetry Intake/Output Intake/Output: Intake & Output 08/13/21 08/14/21 08/15/21 08/16/21 23:59 23:59 23:59 23:59 Intake Total 1010 1570 600 Output Total 300 250 Balance 710 1320 600 Meds/Results Medications: Active Medications Generic Name Dose Route Start Last Admin Trade Name Luisq PRN Reason Stop Dose Admin Apixaban 5 mg 08/14/21 21:00 08/15/21 21:17 Apixaban 5 Mg Tablet PO 5 mg Q12HR [facility] Administration Aspirin 81 mg 08/15/21 08:00 08/15/21 08:58 Aspirin 81 Mg Chewable Tablet PO 81 mg DAILY@0800 AALIYAH Administration Furosemide 40 mg 08/15/21 09:00 08/15/21 17:09 Furosemide 40 Mg Tablet PO 40 mg BID AALIYAH Administration Levofloxacin 750 mg 08/16/21 08:00 Levofloxacin 750 Mg Tablet PO Q48H [facility] Metronidazole 500 mg 08/16/21 08:00 Metronidazole 250 Mg Tablet PO Q8HR [facility] Miconazole Nitrate 1 applic 08/14/21 09:00 08/15/21 21:17 Miconazole 2% Antifungal Ointment 56 Gm TOPICAL 1 applic Q12HR [facility] Administration Nitroglycerin 0.4 mg 08/14/21 07:24 Nitroglycerin Sl 0.4 Mg Tablet SUBLINGUAL Q5MIN PRN Chest Pain Potassium Chloride 20 meq 08/15/21 17:00
[2021-08-16] MEDS: TERAZOSIN HCL 1 MG CAPSULE 2 MG PO (09:18)
[2021-08-16] MEDS: ASPIRIN 81 MG CHEWABLE TABLET PO (09:18)
[2021-08-16] MEDS: FUROSEMIDE 40 MG TABLET PO (09:19)
[2021-08-16] MEDS: APIXABAN 5 MG TABLET PO (09:19)
[2021-08-16] MEDS: POTASSIUM CHLORIDE 20 MEQ TABLET.ER PO (09:19)
[2021-08-16] MEDS: TOLNAFTATE 1% POWDER 45 GM BTL 1 APPLIC TOPICAL (09:20)
[2021-08-16] MEDS: metroNIDAZOLE 250 MG TABLET 500 MG PO ×2 (09:23→14:40)
[2021-08-16] MEDS: levoFLOXacin 750 MG TABLET PO (09:23)
[2021-08-16 12:00] LABS: Basophils Absolute Auto 0.1 K/mm3 (0.0-0.1); Basophils Percent Auto 0.5 % (0.2-1.2); Eosinophils Absolute Auto 0.3 K/mm3 (0-0.3); Eosinophils Percent Auto 1.9 % (0-4.4); Hematocrit 50.8 % (42.0-52.0); Hemoglobin 15.8 g/dL (14.0-18.0); Immature Granulocyte Absolute 0.08 K/mm3 (0.00-0.031); Immature Granulocyte Percent A 0.5 % (0-0.5); Lymphocytes Percent Auto 5.3 % (18.3-44.2); Mean Corpuscular HGB Conc 31.1 g/dl (32-36); Mean Corpuscular Hemoglobin 26.2 pg (26-34); Mean Corpuscular Volume 84.1 fl (80-100); Mean Platelet Volume 10.1 fl (7.4-10.4); Monocytes Absolute Auto 0.8 K/mm3 (0.1-0.6); Monocytes Percent Auto 5.5 % (2.6-8.5); Neutrophils Absolute Auto 12.9 K/mm3 (1.3-6.7); Neutrophils Percent Auto 86.3 % (45.5-73.1); Platelet Count Result 502 k/mm3 (150-375); Red Blood Count 6.04 M/mm3 (4.6-6.20); Red Cell Distribution Width 20.6 % (11.5-14.5)
[2021-08-16 12:48] LABS: Bilirubin Indirect 1.3 mg/dL (0-1.1)
--- NOTE | 2021-08-16 15:16 | PM.DS ---
DS: Admitting Diagnosis Discharge Date 08/16/21 Admitting Diagnosis Chest pain DS: Discharge Diagnosis Discharge Diagnosis (1) Acute respiratory failure with hypoxia: Code(s): J96.01 - Acute respiratory failure with hypoxia Status: Acute Assessment and Plan: Lara presents with chest pain but also found to be hypoxic. ABG showing 7.53/30/69 on 3 L. Chest x-ray is consistent with CHF versus pneumonia. Speech Therapist did see the patient and recommended regular diet with mildly thickened liquid. CHF exacerbation seems less likely given the fact he did just complete a course of metolazone with improvement in his leg edema. COVID was possible but swab was negative. Was treated with IV Lasix but changed to oral Lasix. Started on IV antibiotics for aspiration. Berino overall related to PNA. Able to wean oxygen to room air. (2) Chest pain: Code(s): R07.9 - Chest pain, unspecified Status: Acute Assessment and Plan: EKG showing paced rhythm. Troponin negative x3. No history of coronary disease. Lipid panel noted with LDL 55 and HDL 44. We continued aspirin. Echo with EF 55-60% and mildly reduced RV systolic function and RA severely enlarged. Moderate TR and mild pulmonary HTN. (3) Hypokalemia: Code(s): E87.6 - Hypokalemia Status: Acute Assessment and Plan: Potassium 2.2 on admission. Most likely related to the fact he has been on metolazone recently. Potassium replaced and repeat potassium this morning in 3.8. Magnesium levels remain normal (4) Pneumonia: Code(s): J18.9 - Pneumonia, unspecified organism Status: Acute Assessment and Plan: CXR on admission showing patchy bilateral airspace opacities. Treated with Rocephin azithromycin. Repeat chest x-ray does show improvement possibly due to the fact he was on IV Lasix. BCx NGTD. CT of the abdomen showing bibasilar airspace disease, right greater than left atelectasis vs pneumonia. Bedside swallow evaluation as mentioned above. We thicken liquids. Aspiration precautions. (5) CHF (congestive heart failure): Code(s): I50.9 - Heart failure, unspecified Status: Acute Assessment and Plan: Patient has a history of CHF felt to be diastolic. Echo as mentioned above. BNP was 2720. IV Lasix started on admission but changed back to oral. Repeat CXR showing improvement. (6) Renal insufficiency: Code(s): N28.9 - Disorder of kidney and ureter, unspecified Status: Acute Assessment and Plan: BUN 35, creatinine 1.3 with a creatinine clearance of 43 on admission. Cr about the same at the time of discharge. (7) Bilateral hydrocele: Code(s): N43.3 - Hydrocele, unspecified Status: Acute Assessment and Plan: Patient with marked scrotal swelling. This is longstanding related to large hydroceles. US showing the left testicular with regions of heterogeneous parenchyma which could indicate testicular mass such as seminoma and severe bilateral hydroceles. CT A/P showing mild bladder wall thickening with subtle perivesical fatty infiltration, suspicious for cystitis. UCx growing EColi. The large hydrocelesl make it difficult for the patient to walk. Urologist consulted and appreciated their input. Patient will follow up with his urologist after discharge. (8) Mass of left testicle: Code(s): N50.89 - Other specified disorders of the male genital organs Status: Acute Assessment and Plan: Tumor markers collected. Appreciate Urology input. (9) Atrial fibrillation: Code(s): I48.91 - Unspecified atrial fibrillation Status: Acute Assessment and Plan: Patient has chronic atrial fibrillation and has paced rhythm. He is not on any rate controlling agents. He is on Eliquis which was resumed here. (10) Dementia: Code(s): F03.90 - Unspecified dementia without behavioral disturbance Status: Acute
--- NOTE | 2021-08-20 09:50 | PC.NURSE ---
Blood cx are negative.
[2021-08-21 05:28] LABS: HCG Tumor Marker <3 mIU/mL (<5)
[2021-08-23 01:38] LABS: Alpha Fetoprotein Tumor Marker 4.1 ng/mL (<6.1)
--- NOTE | 2021-08-23 10:06 | PC.NURSE ---
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 Alcantar aware.
== END 2021-08-16 16:52 | disposition home or self-care (01) | DRG 193 ==
LOC: ANHED 06:21 → ANHIMU 07:36
PROVIDERS: Urology; Admitting Provider Internal Medicine; Emergency Provider General Practice; PCP Internal Medicine; Visit Provider Internal Medicine
DX: J18.9 Pneumonia, unspecified organism (principal); J96.01 Acute respiratory failure with hypoxia; I48.20 Chronic atrial fibrillation, unspecified; J44.0 Chronic obstructive pulmonary disease with (acute) lower respiratory infection; N39.0 Urinary tract infection, site not specified; I50.32 Chronic diastolic (congestive) heart failure; B96.20 Unspecified Escherichia coli [E. coli] as the cause of diseases classified elsewhere; Z20.822 Contact with and (suspected) exposure to COVID-19; I27.20 Pulmonary hypertension, unspecified; R07.9 Chest pain, unspecified; E87.6 Hypokalemia; I11.0 Hypertensive heart disease with heart failure; N43.3 Hydrocele, unspecified; N50.89 Other specified disorders of the male genital organs; N28.9 Disorder of kidney and ureter, unspecified; F03.90 Unspecified dementia, unspecified severity, without behavioral disturbance, psychotic disturbance, mood disturbance, and anxiety; G47.33 Obstructive sleep apnea (adult) (pediatric); Z86.73 Personal history of transient ischemic attack (TIA), and cerebral infarction without residual deficits; Z87.891 Personal history of nicotine dependence; Z95.0 Presence of cardiac pacemaker
CPT/HCPCS: 36415; 36600; 71045; 74176; 76870; 80048; 80053; 80061; 80076; 81001; 82105; 82375; 82805; 83050; 83615; 83690; 83735; 83880; 84100; 84132; 84484; 84702; 85025; 85027; 85610; 85730; 87040; 87077; 87086; 87088; 87186; 92610; 93005; 93306; 93976; 96365; 96367; 96375; 97110; 97161; 97165; 97530; 97535; 99285; A9270; C9803; G0378; J0295; J0696; J1940; J2270; J2405; J3480; U0003; U0005